=== PATIENT | male | born 1995 | race African-American/Black ===

== ENCOUNTER 2016-10-15 10:46 | Emergency (ER) | payer SELFPAY ==
[~2016-10-15] VITALS: Ht 162.6 cm; Wt 75.2 kg
[~2016-10-15 10:46] MED LIST: IBUP800T23 PO
[2016-10-15 10:53] VITALS: BP 123/69; PULSE 77; RESP 14; TEMP 98.4; O2SAT 100
--- NOTE | 2016-10-15 11:07 | PD ---
HPI Chief Complaint: Head Injury Time Seen by Provider: 11:00 Travel History International Travel<30 days: No Contact w/Intl Traveler<30days: No Traveled to known affect area: No History of Present Illness HPI This patient complains of head injury. Yesterday at 4 PM he was swimming and hit his head on the side of the floor. He says he briefly blacked out. He does have headache. No neck symptoms. Symptoms of moderate severity. No alleviating factors. Duration is 19 hours PFSH Past Medical History Medical History: Denies Significant Hx Diminished Hearing: No Immunizations Current: Yes Migraines: Yes Tetanus Vaccination: Unknown Influenza Vaccination: No Past Surgical History Surgical History: No Previous Surgery Hysterectomy: No Social History Alcohol Use: Yes (Occ.) Tobacco Use: No Substance Use: Yes (Marijuana) Allergies-Medications (Allergen,Severity, Reaction): Coded Allergies: Ceclor (Verified Allergy, Mild, RASH, 10/15/16) Dust (Verified Allergy, Mild, EYES BURN, SNEEZING, 10/15/16) Reported Meds & Prescriptions Reported Meds & Active Scripts Active No Active Prescriptions or Reported Medications Review of Systems General / Constitutional: No: Fever Eyes: No: Visual changes HENT: Positive: Headaches, Lightheadedness Cardiovascular: No: Chest Pain or Discomfort Respiratory: No: Shortness of Breath Gastrointestinal: No: Abdominal Pain Genitourinary: No: Dysuria Musculoskeletal: No: Pain Skin: No Rash Neurologic: Positive: Headache, No: Weakness Psychiatric: No: Depression Endocrine: No: Polydipsia Hematologic/Lymphatic: No: Easy Bruising Physical Exam Narrative GENERAL: Well-nourished, well-developed patient in no apparent distress. SKIN: Focused skin assessment reveals no rash and nodules. Skin is Warm and dry. HEAD: Has some ecchymosis and abrasion to the right forehead. Normocephalic. EYES: Pupils equal and round. No scleral icterus. No injection or drainage. ENT: No nasal bleeding or discharge. Mucous membranes pink and moist. NECK: Trachea midline. No JVD. No midline tenderness CARDIOVASCULAR: Regular rate and rhythm. No murmur appreciated. RESPIRATORY: No accessory muscle use. Clear to auscultation. Breath sounds equal bilaterally. GASTROINTESTINAL: Abdomen soft, non-tender, nondistended. Hepatic and splenic margins not palpable. MUSCULOSKELETAL: No obvious deformities. No clubbing. No cyanosis. No edema. NEUROLOGICAL: Awake and alert. No obvious cranial nerve deficits. Motor grossly within normal limits. Normal speech. PSYCHIATRIC: Appropriate mood and affect; insight and judgment normal. Data Data Last Documented VS Vital Signs Date Time Temp Pulse Resp B/P Pulse Ox O2 Delivery O2 Flow Rate FiO2 10/15/16 10:53 98.4 77 14 123/[address] Brain W/O Iv Contrast(Rout) (10/15/16 ) MDM Medical Decision Making Medical Screen Exam Complete: Yes Emergency Medical Condition: Yes Medical Record Reviewed: Yes Differential Diagnosis Intracranial hemorrhage, skull fracture, concussion Narrative Course I have reviewed the patient's electronic medical record. Patient is neurologically intact Brain CT is normal Patient may have some mild postconcussive symptoms but he is expected to make recovery spontaneously Diagnosis Primary Impression: Postconcussive syndrome Additional Instructions: The patient was advised to follow up with their physician and return if they worsen. Med/Other Pt SpecificInfo: Other Scripts No Active Prescriptions or Reported Meds Disposition: 01 DISCHARGE HOME Condition: Stable Gilberto Matute MD October 15, 2016 11:07
--- NOTE | 2016-10-15 11:26 | RADHPO ---
EXAM DATE/TIME: 10/15/2016 11:06 [facility] COMPARISON: No previous studies available for comparison. INDICATIONS : Fell in pool and hit head yesterday. Dizziness and nausea. RADIATION DOSE: 60.44 CTDIvol (mGy) MEDICAL HISTORY : None SURGICAL HISTORY : None. ENCOUNTER: Initial ACUITY: 2 days PAIN SCALE: 0/10 LOCATION: cranial TECHNIQUE: Multiple contiguous axial images were obtained of the head. Using automated exposure control and adj ustment of the mA and/or kV according to patient size, radiation dose was kept as low as reasonably a chievable to obtain optimal diagnostic quality images. FINDINGS: CEREBRUM: The ventricles are normal for age. No evidence of midline shift, mass lesion, hemorrhage or acute in farction. No extra-axial fluid collections are seen. POSTERIOR FOSSA: The cerebellum and brainstem are intact. The 4th ventricle is midline. The cerebellopontine angle i s unremarkable. EXTRACRANIAL: The visualized portion of the orbits is intact. SKULL: The calvaria is intact. No evidence of skull fracture. CONCLUSION: Normal examination for a patient of this age. Nate Armenta MD on October 15, 2016 at 11:23 Board Certified Radiologist. This report was verified electronically.
== END 2016-10-15 11:56 | disposition home or self-care (01) ==
LOC: PHED 10:46
DX: F07.81 Postconcussional syndrome (principal); S00.83XA Contusion of other part of head, initial encounter; S00.81XA Abrasion of other part of head, initial encounter; W22.8XXA Striking against or struck by other objects, initial encounter
CPT/HCPCS: 70450

== ENCOUNTER 2016-11-08 16:05 | Emergency (ER) | payer SELFPAY ==
[~2016-11-08] VITALS: Ht 162.6 cm; Wt 73.0 kg
[2016-11-08 16:08] VITALS: BP 130/86; PULSE 51; RESP 16; TEMP 97.8; O2SAT 100
--- NOTE | 2016-11-08 16:30 | PD ---
HPI Chief Complaint: Oral / Dental Pain or Problem Time Seen by Provider: 16:15 Travel History International Travel<30 days: No Contact w/Intl Traveler<30days: No Traveled to known affect area: No History of Present Illness HPI 21-year-old male presents emergency department for left upper dental pain 1 day. Patient reports he has a fractured decayed tooth at the site of the pain. He denies fever, chills, sweating, difficulty swallowing. He reports the pain as throbbing, located in the left upper jaw, nonradiating, worse with eating and chewing. 6 out of 10 severity PFSH Past Medical History Medical History: Denies Significant Hx Diminished Hearing: No Immunizations Current: Yes Migraines: Yes Past Surgical History Hysterectomy: No Social History Alcohol Use: Yes (Occ.) Tobacco Use: No Substance Use: Yes (Marijuana) Allergies-Medications (Allergen,Severity, Reaction): Coded Allergies: Ceclor (Verified Allergy, Mild, RASH, 11/08/16) Dust (Verified Allergy, Mild, EYES BURN, SNEEZING, 11/08/16) Reported Meds & Prescriptions Reported Meds & Active Scripts Active No Active Prescriptions or Reported Medications Review of Systems Except as stated in HPI: all other systems reviewed are Neg Physical Exam Narrative GENERAL: Well-nourished, well-developed patient. SKIN: Focused skin assessment warm/dry. HEAD: Normocephalic. MOUTH: Tooth #16 decayed and fractured with surrounding gum erythema and mild swelling EYES: No scleral icterus. No injection or drainage. NECK: Supple, trachea midline. No JVD or lymphadenopathy. CARDIOVASCULAR: Regular rate and rhythm without murmurs, gallops, or rubs. RESPIRATORY: Breath sounds equal bilaterally. No accessory muscle use. MUSCULOSKELETAL: No cyanosis, or edema. Data Data Last Documented VS Vital Signs Date Time Temp Pulse Resp B/P Pulse Ox O2 Delivery O2 Flow Rate FiO2 11/08/16 16:08 97.8 51 16 130/86 100 MDM Medical Decision Making Medical Screen Exam Complete: Yes Emergency Medical Condition: Yes Differential Diagnosis Dental infection, dental caries, fractured tooth Narrative Course 21-year-old male presents emergency department for left upper dental pain at the site of a fractured tooth. He reports the tooth has been decayed and fractured for "months". He denies fever or chills or difficulty swallowing. He is well-appearing and nontoxic. Patient will be put on antibiotics and instructed to follow up with dentist. Patient reports allergies Ceclor (rash). States he has taken penicillin past without any reaction. Diagnosis Primary Impression: Dental infection Referrals: Dentist Scripts Penicillin V Potassium 250 Mg Xbs114 Mg PO Q6H #28 TAB Prov:Zeny Ordonez 11/08/16 Disposition: 01 DISCHARGE HOME Condition: Stable Zeny Ordonez Nov 08, 2016 16:30
[2016-11-08] MEDS ORDERED: PENI250T PO (16:37)
== END 2016-11-08 16:55 | disposition home or self-care (01) ==
LOC: PHEFT 16:05
DX: F12.90 Cannabis use, unspecified, uncomplicated (principal); K04.7 Periapical abscess without sinus
CPT/HCPCS: 99283